=== PATIENT | female | born 1930 | race Caucasian/White ===

== ENCOUNTER 2017-09-19 18:30 | Emergency (ER) | payer MEDICARE, BC ==
[2017-09-19] MEDS ORDERED: fentaNYL 100 MCG/2 ML SDV IVPUSH ONE ×2 (18:32→19:19)
--- NOTE | 2017-09-19 18:35 | EDM.PDOC ---
ED HPI GENERAL MEDICAL PROBLEM - General Chief Complaint: Lower Extremity Injury/Pain Stated Complaint: MED[facility] Time Seen by Provider: 09/19/17 18:30 Source of Information: Reports: EMS History Limitations: Reports: Other (? dementia ) - History of Present Illness INITIAL COMMENTS - FREE TEXT/NARRATIVE: 87 yo female fell on the stairs of her camper and injured her R knee. Here via EMS after Fentanyl 50 mcg IV. Vital stable en route. not here yet. now says she climbed the 3 steps to their trailer successfully then tripped once into the trailer. Onset: Today Onset Date: 09/19/17 Onset Time: 17:50 Duration: Minutes: Location: Reports: Lower Extremity, Right Quality: Reports: Ache Severity: Severe Improves with: Reports: Rest Worsens with: Reports: Movement Context: Reports: Trauma Associated Symptoms: Reports: No Other Symptoms Treatments C[employer]PER: Reports: Other (see below) (See HPI) - Related Data Allergies Allergy/AdvReac Type Severity Reaction Status Date / Time No Known Allergies Allergy Verified 09/19/17 18:45 Home Meds: Home Meds NK [No Known Home Meds] 09/19/17 [History] Review of Systems - Review of Systems Review Of Systems: Unable To Obtain (due to dementia, denies she has any recent illnesses.) ED EXAM, GENERAL - Physical Exam Exam: See Below Exam Limited By: No Limitations General Appearance: Alert, Mild Distress, Thin Eye Exam: Bilateral Eye: Normal Inspection Ears: Normal External Exam, Normal Canal Ear Exam: Bilateral Ear: Auricle Normal, Canal Normal Nose: Normal Inspection, Normal Mucosa, No Blood Throat/Mouth: Normal Inspection, Normal Lips, Normal Oropharynx, Normal Voice, No Airway Compromise Head: Atraumatic, Normocephalic Neck: Normal Inspection, Supple, Non-Tender Respiratory/Chest: No Respiratory Distress, Lungs Clear, Normal Breath Sounds, No Accessory Muscle Use Cardiovascular: Regular Rate, Rhythm, No Edema GI/Abdominal: Normal Bowel Sounds, Soft, Non-Tender Extremities: No Pedal Edema, Limited Range of Motion (R knee due to pain). No: Normal Inspection, Normal Range of Motion, Non-Tender, Joint Swelling, Increased Warmth, Redness Neurological: Alert, CN II-XII Intact, No Motor/Sensory Deficits, Disoriented Psychiatric: Normal Affect, Normal Mood Skin Exam: Warm, Dry, Intact, Normal Color, No Rash Course - Vital Signs Text/Narrative:: Posterior splint applied. Accepted in transfer by Dr. Merlos of the [facility] ER @ 1915h ALS transfer planned. Last Recorded V/S: Last Vital Signs Temp 37.2 C 09/19/17 18:36 Pulse 112 H 09/19/17 18:36 Resp BP 196/99 H 09/19/17 18:36 Pulse Ox 94 L 09/19/17 18:36 - Orders/Labs/Meds Orders: Active Orders 24 hr Category Date Time Status Knee 3V Rt [CR] Stat Exams 09/19/17 18:32 Taken Meds: Medications Discontinued Medications Generic Name Dose Route Start Last Admin Trade Name Freq PRN Reason Stop Dose Admin Fentanyl 50 mcg 09/19/17 18:32 09/19/17 18:55 Sublimaze IVPUSH 09/19/17 18:33 50 mcg ONETIME ONE Administration - Radiology Interpretation Free Text/Narrative:: R knee A-ojl-eyifcm femur fx Departure - Departure Time of Disposition: 19:30 Disposition: DC/Tfer to Acute Hospital 02 Condition: Fair Clinical Impression: Femur fracture, right Qualifiers: Encounter type: initial encounter Femur location: distal Fracture type: closed Fracture morphology: unspecified fracture morphology Qualified Code(s): S72.401A - Unspecified fracture of lower end of right femur, initial encounter for closed fracture - Discharge Information Referrals: PCP,None [Primary Care Provider] - Forms: ED Department Discharge - My Orders Last 24 Hours: My Active Orders 09/19/17 18:32 Knee 3V Rt [CR] Stat - Assessment/Plan Last 24 Hours: My Active Orders 09/19/17 18:32 Knee 3V Rt [CR] Stat
[2017-09-19] MEDS ORDERED: Lactated Ringers 1,000 ML IV SCH (19:15)
[2017-09-19] MEDS ORDERED: fentaNYL 100 MCG/2 ML SDV ONE (19:21)
--- NOTE | 2017-09-20 09:05 | CR ---
Knee 1V or 2V Rt INDICATION: fall with knee pain COMPARISON: None FINDINGS: 2 views. Fracture distal femoral shaft posterolaterally involving a TKA. Bones are osteo penic. Mild posterior lateral angulation of the distal fracture fragment. Prosthetic components appea r intact. Vascular calcifications.
== END 2017-09-19 20:50 ==
LOC: JP.ED 18:30
DX: S72.401A Unspecified fracture of lower end of right femur, initial encounter for closed fracture (principal); W10.9XXA Fall (on) (from) unspecified stairs and steps, initial encounter
CPT/HCPCS: 29505; 36415; 51702; 73560; 80048; 81001; 85027; 96361; 96374; 99284; 99285; J3010; J7120